=== PATIENT | female | born 1960 | race Caucasian/White ===

== ENCOUNTER 2022-02-21 23:51 | Inpatient (IN) | payer MEDICAID, OTHER ==
[~2022-02-21] VITALS: Ht 157.5 cm; Wt 81.3 kg
[2022-02-22 00:38] LABS: CHLORIDE 103 mEq/L (98-107)
[2022-02-22 00:39] LABS: BASOPHILS % 0.6 % (0.0-2.0); EOSINOPHILS % 1.8 % (0.0-5.0); HEMATOCRIT. 33.4 % (36.0-48.0); HEMOGLOBIN. 11.2 g/dL (12.0-16.0); LYMPHOCYTES % 28.1 % (20.0-50.0); MEAN CORPUSCULAR HEMOGLOBIN 29.4 pg (28.0-32.0); MEAN CORPUSCULAR VOLUME 87.3 fL (81.0-99.0); MONOCYTES % 6.9 % (2.0-8.0); NEUTROPHILS % 62.6 % (40.0-76.0); PLATELET 240 x1000/uL (130-400); RED BLOOD CELL COUNT 3.83 mill/uL (4.2-5.4); RED CELL DISTRIBUTION WIDTH 13.2 % (11.6-14.6)
[2022-02-22] MEDS ORDERED: ENOXAPARIN 80MG/0.8ML SYR SUBCUT ONE (02:30)
[2022-02-22] MEDS ORDERED: NITROGLYCERIN 0.4MG TABLET SL SL PRN (13:00)
[2022-02-22] MEDS ORDERED: ASPIRIN 81MG TABLET PO SCH (13:00)
[2022-02-22] MEDS ORDERED: ONDANSETRON HCL 4MG/2ML INJ IV PRN (13:45)
[2022-02-22] MEDS ORDERED: CLONIDINE 0.1MG TABLET PO PRN (13:45)
[2022-02-22] MEDS ORDERED: ACETAMINOPHEN 325MG TABLET PO PRN (13:45)
[2022-02-22] MEDS: METOPROLOL TARTRATE 25MG TABLET PO SCH ×2 (14:14→17:02)
[2022-02-22] MEDS: LISINOPRIL 10MG TABLET PO SCH (14:15)
[2022-02-22 14:41] LABS: CREATINE KINASE MB FRACTION 1.1 ng/mL (0.5-3.6)
[2022-02-22 16:06] LABS: PROTHROMBIN TIME 10.4 sec (9.6-11.0)
[2022-02-22] MEDS: ENOXAPARIN 80MG/0.8ML SYR SUBCUT SCH (17:01)
[2022-02-22] MEDS: ATORVASTATIN CALCIUM 40MG TABLET PO SCH (21:17)
[2022-02-22 23:55] LABS: CREATINE KINASE 67 IU/L (26-192); CREATINE KINASE MB FRACTION < 1.0 ng/mL (0.5-3.6)
[2022-02-23 04:42] LABS: BASOPHILS % 0.6 % (0.0-2.0); EOSINOPHILS % 3.3 % (0.0-5.0); HEMATOCRIT. 36.8 % (36.0-48.0); HEMOGLOBIN. 12.3 g/dL (12.0-16.0); LYMPHOCYTES % 30.4 % (20.0-50.0); MEAN CORPUSCULAR HEMOGLOBIN 29.3 pg (28.0-32.0); MEAN CORPUSCULAR VOLUME 87.8 fL (81.0-99.0); MEAN PLATELET VOLUME 7.9 fl (7.4-10.4); MONOCYTES % 6.6 % (2.0-8.0); NEUTROPHILS % 59.1 % (40.0-76.0); PLATELET 235 x1000/uL (130-400); RED BLOOD CELL COUNT 4.19 mill/uL (4.2-5.4); RED CELL DISTRIBUTION WIDTH 13.3 % (11.6-14.6)
[2022-02-23 04:56] LABS: CHLORIDE 104 mEq/L (98-107)
[2022-02-23 05:06] LABS: HDL CHOLESTEROL 53 mg/dL (40-59); LDL CHOLESTEROL 38 mg/dL (5-100)
[2022-02-23] MEDS: ENOXAPARIN 80MG/0.8ML SYR SUBCUT SCH (06:00)
[2022-02-23] MEDS: ASPIRIN 81MG TABLET PO SCH (09:26)
[2022-02-23] MEDS: LISINOPRIL 10MG TABLET PO SCH (09:26)
[2022-02-23] MEDS: METOPROLOL TARTRATE 25MG TABLET PO SCH (09:26)
[2022-02-23 10:28] VITALS: BP 128/85
[2022-02-23 10:36] VITALS: BP 128/85
[2022-02-23 17:00] VITALS: BP 127/85
[2022-02-23 18:00] VITALS: BP 121/74
[2022-02-23] MEDS ORDERED: ENOXAPARIN 80MG/0.8ML SYR SUBCUT SCH (18:00)
[2022-02-23 19:47] VITALS: BP 127/84
[2022-02-23] MEDS ORDERED: DEXTROSE 50% WATER 50ML SYRINGE IV PRN ×2 (22:15)
[2022-02-23] MEDS: INSULIN LISPRO 100 UNITS/ML SUBCUT SCH (22:15)
[2022-02-23] MEDS: BLOOD SUGAR DIAGNOSTIC STRIP TEST SCH (22:27)
[2022-02-23] MEDS: ATORVASTATIN CALCIUM 40MG TABLET PO SCH (22:27)
[2022-02-23 23:52] VITALS: BP 94/41
[2022-02-24 04:23] VITALS: BP 119/60
[2022-02-24] MEDS: BLOOD SUGAR DIAGNOSTIC STRIP TEST SCH ×3 (06:11→16:50)
[2022-02-24] MEDS ORDERED: BLOOD SUGAR DIAGNOSTIC STRIP TEST SCH (06:50)
[2022-02-24] MEDS: INSULIN LISPRO 100 UNITS/ML SUBCUT SCH ×3 (07:20→17:22)
[2022-02-24 07:44] VITALS: BP 120/70
[2022-02-24] MEDS: ASPIRIN 81MG TABLET PO SCH (08:25)
[2022-02-24] MEDS ORDERED: HEPARIN 1000 UNITS/ML 10ML ONE (08:28)
[2022-02-24] MEDS ORDERED: IODIXANOL 320MG/ML 100 ML BOTTLE IV ONE (08:28)
[2022-02-24] MEDS ORDERED: LIDOCAINE HCL/PF 2% 20MG/ML 5 ML/VIAL ONE (08:28)
[2022-02-24] MEDS ORDERED: MIDAZOLAM HCL 2 MG/2 ML VIAL ONE (08:29)
[2022-02-24] MEDS ORDERED: FENTANYL CITRATE/PF 50MCG/ML 2ML VIAL ONE (08:29)
[2022-02-24] MEDS ORDERED: VERAPAMIL HCL 2.5 MG/1 ML 2ML VIAL IV ONE (09:23)
[2022-02-24] MEDS ORDERED: NITROGLYCERIN 50MCG/ML 10ML VIAL (CATH LAB) IV ONE (10:55)
[2022-02-24] MEDS ORDERED: NICARDIPINE 100MCG/ML 10ML VIAL (CATH LAB) IV ONE (10:55)
[2022-02-24] MEDS ORDERED: ATROPINE SULFATE 1MG/10ML SYR IV PRN (11:00)
[2022-02-24] MEDS ORDERED: ISOSORBIDE MONONITRATE 30MG TABLET SR 24HR PO SCH ×2 (11:00→11:45)
[2022-02-24 12:00] VITALS: BP 112/65
[2022-02-24] MEDS: LISINOPRIL 10MG TABLET PO SCH (12:37)
[2022-02-24 16:00] VITALS: BP 92/62
[2022-02-24 17:47] VITALS: BP 92/62
== END 2022-02-24 18:45 | disposition home or self-care (01) | DRG 191 ==
LOC: ER 23:51 → MICUSO 02-22 06:07 → 3WST 02-23 11:38
PROVIDERS: ADMIT Internal Medicine; ATTEND Internal Medicine
PROC: 4A023N7 Measurement of Cardiac Sampling and Pressure, Left Heart, Percutaneous Approach (ICD-10-PCS; principal; 2022-02-24)
PROC: B211YZZ Fluoroscopy of Multiple Coronary Arteries using Other Contrast (ICD-10-PCS; 2022-02-24)
PROC: B215YZZ Fluoroscopy of Left Heart using Other Contrast (ICD-10-PCS; 2022-02-24)
PROC: 4A033BC Measurement of Arterial Pressure, Coronary, Percutaneous Approach (ICD-10-PCS; 2022-02-24)
DX: I25.10 Atherosclerotic heart disease of native coronary artery without angina pectoris (principal); E44.1 Mild protein-calorie malnutrition; I11.0 Hypertensive heart disease with heart failure; I50.22 Chronic systolic (congestive) heart failure; E11.9 Type 2 diabetes mellitus without complications; E78.5 Hyperlipidemia, unspecified; K21.9 Gastro-esophageal reflux disease without esophagitis; Z20.822 Contact with and (suspected) exposure to COVID-19; E78.00 Pure hypercholesterolemia, unspecified; I25.2 Old myocardial infarction; Z88.8 Allergy status to other drugs, medicaments and biological substances; Z68.32 Body mass index [BMI] 32.0-32.9, adult; Z95.5 Presence of coronary angioplasty implant and graft
CPT/HCPCS: 36415; 71045; 80048; 80053; 80061; 82550; 82553; 82962; 83036; 83735; 84484; 85025; 85347; 87426; 93005; 93306; 93458; 93571; 99291; C1769; C1887; C1893; C9803; J1644; J1650; J1815; J2250; J3010; J3490; Q9967